=== PATIENT | male | born 1965 | race Caucasian/White ===

== ENCOUNTER 2018-11-25 10:47 | Day surgery (SDC) | payer OTHER ==
[~2018-11-25] VITALS: Ht 185.4 cm; Wt 104.5 kg
[2018-11-25 11:07] VITALS: BP 128/98
[2018-11-25] MEDS ORDERED: LACTATED RINGERS 1,000 ML IV SCH (11:09)
[2018-11-25] MEDS ORDERED: SIMV40TA3 PO (11:38)
[2018-11-25] MEDS ORDERED: ASPI-515 PO (11:38)
[2018-11-25] MEDS ORDERED: LOSA25TA12 PO (11:38)
[2018-11-25] MEDS ORDERED: CHOL2000 PO (11:38)
[2018-11-25] MEDS ORDERED: METO25TA35 PO (11:38)
[2018-11-25] MEDS ORDERED: FENTANYL PF 250 MCG/5ML ONE (13:46)
[2018-11-25] MEDS ORDERED: MIDAZOLAM 1 MG/ML, 2ML ONE (13:46)
[2018-11-25] MEDS ORDERED: PROPOFOL 10 MG/ML, 20ML ONE (13:47)
[2018-11-25] MEDS ORDERED: LIDOCAINE-MPF 2% ,5ML ONE (13:47)
[2018-11-25] MEDS ORDERED: CEFAZOLIN 1,000 MG ONE ×3 (13:48→14:30)
[2018-11-25] MEDS ORDERED: WATER-INJECTION,STERILE 10 ML IV ONE (13:48)
[2018-11-25] MEDS ORDERED: ONDANSETRON 2MG/ML, 2ML ONE (14:30)
[2018-11-25] MEDS ORDERED: PHENYLEPHRINE 10 MG/ML ONE (14:30)
[2018-11-25] MEDS ORDERED: DEXAMETHASONE 4 MG/ML, 1ML ONE ×2 (14:37)
[2018-11-25] MEDS ORDERED: BUPIVACAINE/PF 0.5% ONE (14:44)
[2018-11-25] MEDS ORDERED: ACETAMINOPHEN 325 MG TABLET PO PRN (15:00)
[2018-11-25] MEDS ORDERED: LORazepam 2 MG/ML, 1ML IVPush PRN (15:00)
[2018-11-25] MEDS ORDERED: OXYcodone 5 MG/5 ML ORAL.SOL UDC PO PRN (15:00)
[2018-11-25] MEDS ORDERED: MEPERIDINE/PF 25MG/0.5ML IVPush PRN (15:00)
[2018-11-25] MEDS ORDERED: hydrALAzine 20 MG/ML, 1ML IV PRN (15:00)
[2018-11-25] MEDS ORDERED: FENTANYL PF 100 MCG/2ML IV PRN (15:00)
[2018-11-25] MEDS ORDERED: HALOPERIDOL 5 MG/ML IV PRN (15:00)
[2018-11-25] MEDS ORDERED: PROMETHAZINE 25 MG/ML, 1ML IV PRN (15:00)
[2018-11-25] MEDS ORDERED: HYDROmorphone 2 MG/ML, 1ML IVPush PRN (15:00)
[2018-11-25] MEDS ORDERED: OXYcodone 5 MG/5 ML ORAL.SOL UDC ONE (15:35)
== END 2018-11-25 17:40 | disposition home or self-care (01) ==
LOC: OUT 10:47
PROVIDERS: ATTEND Orthopaedic Surgery
DX: S67.197A Crushing injury of left little finger, initial encounter (principal); F17.210 Nicotine dependence, cigarettes, uncomplicated; X58.XXXA Exposure to other specified factors, initial encounter; Y93.89 Activity, other specified; Y92.89 Other specified places as the place of occurrence of the external cause; Y99.8 Other external cause status
CPT/HCPCS: 26951; 88305; 93005; J0690; J1100; J2250; J2370; J2405; J2704; J3010; J3490

== ENCOUNTER 2019-01-21 15:15 | Outpatient (CLI) | payer OTHER ==
[~2019-01-21 15:15] MED LIST: ASPI-515 PO; CHOL2000 PO; LOSA25TA12 PO; METO25TA35 PO; SIMV40TA3 PO
== END 2019-01-21 23:59 | disposition home or self-care (01) ==
LOC: STAR 15:15
PROVIDERS: ATTEND Internal Medicine Cardiovascular Disease
DX: Z02.9 Encounter for administrative examinations, unspecified (principal)

== ENCOUNTER 2019-01-24 07:53 | Day surgery (SDC) | payer OTHER ==
[2019-01-21 15:44] VITALS: BP 104/77
[2019-01-21 16:11] LABS: BASOPHILS # (AUTO) 0.06 x10^3/uL (0-0.1); BASOPHILS % (AUTO) 1 % (0-1); EOSINOPHILS # (AUTO) 0.14 x10^3/uL (0-0.4); EOSINOPHILS % (AUTO) 2 % (1-7); LYMPHOCYTES # (AUTO) 2.56 x10^3/uL (1-3.4); LYMPHOCYTES % (AUTO) 37 % (22-44); MD NO; MEAN CORPUSCULAR HEMOGLOBIN 30.8 pg (27.5-34.5); MEAN CORPUSCULAR HGB CONC 33.8 g/dL (33.2-36.2); MEAN CORPUSCULAR VOLUME 91.2 fL (81-97); MEAN PLATELET VOLUME 7.9 fL (7.4-10.4); MONOCYTES # (AUTO) 0.78 x10^3/uL (0.2-0.8); MONOCYTES % (AUTO) 11 % (2-9); NEUTROPHILS # (AUTO) 3.47 x10^3/uL (1.8-6.8); NEUTROPHILS % (AUTO) 50 % (42-75); PLATELET COUNT 238 x10^3/uL (130-400); RED BLOOD COUNT 5.46 x10^6/uL (4.38-5.82); RED CELL DISTRIBUTION WIDTH 14.6 % (9.4-14.8)
[2019-01-21 16:18] LABS: ANION GAP 5 mmol/L (5-15); CHLORIDE 111 mmol/L (98-107)
[2019-01-21 16:19] LABS: CREATININE 1.08 mg/dL (0.7-1.3)
[~2019-01-24] VITALS: Ht 185.4 cm; Wt 100.0 kg
[2019-01-24] MEDS ORDERED: SODIUM CHLORIDE 0.9% 1,000 ML IV SCH ×2 (08:05→10:15)
[2019-01-24] MEDS ORDERED: DIPHENHYDRAMINE 50 MG/ML, 1ML ONE (08:22)
[2019-01-24] MEDS ORDERED: DIPHENHYDRAMINE 50 MG/ML, 1ML IVPush ONE (08:30)
[2019-01-24] MEDS ORDERED: MIDAZOLAM 1 MG/ML, 2ML ONE (08:54)
[2019-01-24] MEDS ORDERED: FENTANYL PF 100 MCG/2ML ONE (08:54)
[2019-01-24] MEDS ORDERED: LIDOCAINE 1%, 20ML ONE (08:55)
[2019-01-24] MEDS ORDERED: VERAPAMIL 2.5 MG/ML, 2ML ONE (09:21)
[2019-01-24] MEDS ORDERED: NITROGLYCERIN 5 MG/ML, 10ML ONE (09:21)
[2019-01-24] MEDS ORDERED: HEPARIN 1,000 UNITS/ML, 10ML ONE (10:21)
== END 2019-01-24 13:30 | disposition home or self-care (01) ==
LOC: CACL 07:53
PROVIDERS: ATTEND Internal Medicine Cardiovascular Disease
DX: I27.21 Secondary pulmonary arterial hypertension (principal); J44.9 Chronic obstructive pulmonary disease, unspecified; E78.2 Mixed hyperlipidemia; Z79.82 Long term (current) use of aspirin
CPT/HCPCS: 36415; 80048; 85025; 93460; 99156; 99157; C1769; C1894; J1200; J1644; J2250; J3010; Q9967

== ENCOUNTER → 2020-08-13 | Outpatient (CLI) | payer MEDICAID ==
[~2020-08-13] MED LIST changes: +SIMV40TA20 PO; -SIMV40TA3 PO
== END | disposition home or self-care (01) ==
LOC: CVU 15:34
PROVIDERS: ATTEND Internal Medicine Cardiovascular Disease
DX: I08.8 Other rheumatic multiple valve diseases (principal); I10 Essential (primary) hypertension; R06.02 Shortness of breath
CPT/HCPCS: 93306

== ENCOUNTER → 2020-10-03 | Day surgery (SDC) | payer MEDICAID ==
[~2020-10-03] VITALS: Ht 185.4 cm; Wt 118.0 kg
[~2020-10-03] MED LIST changes: +AMIO100T4 PO; +APIX5TAB PO; +DIPHENHYDRAMINE 50 MG/ML, 1ML IVPush ONE; +DIPHENHYDRAMINE 50 MG/ML, 1ML ONE; +FURO20TA3 PO; +MACI10TA PO; +METO-93 PO; +POTA10CA PO; +RIOC2.5T PO; +[UNRECOGNIZED DRUG - REMARK] MC PRN
[2020-10-03 10:53] VITALS: BP 106/73
[2020-10-03 10:59] LABS: MEAN CORPUSCULAR HEMOGLOBIN 30.2 pg (27.5-34.5); MEAN PLATELET VOLUME 7.4 fL (7.4-10.4); PLATELET COUNT 217 x10^3/uL (130-400); RED BLOOD COUNT 5.36 x10^6/uL (4.38-5.82); RED CELL DISTRIBUTION WIDTH 14.1 % (9.4-14.8)
[2020-10-03 11:09] LABS: ANION GAP 4 mmol/L (5-15); CALCIUM 8.5 mg/dL (8.5-10.1); CHLORIDE 108 mmol/L (98-107); CREATININE 1.27 mg/dL (0.7-1.3)
== END | disposition home or self-care (01) ==
LOC: CACL 09:59
PROVIDERS: ATTEND Internal Medicine Cardiovascular Disease
DX: I27.20 Pulmonary hypertension, unspecified (principal); I48.0 Paroxysmal atrial fibrillation; I10 Essential (primary) hypertension; E78.2 Mixed hyperlipidemia; E66.3 Overweight; Z68.33 Body mass index [BMI] 33.0-33.9, adult; Z79.01 Long term (current) use of anticoagulants; Z79.899 Other long term (current) drug therapy; Z87.891 Personal history of nicotine dependence
CPT/HCPCS: 36415; 80048; 85027; 93451; C1894; J1200